=== PATIENT | female | born 1960 | race Caucasian/White ===

== ENCOUNTER 2017-07-11 12:55 | Emergency (ER) | payer MEDICARE, OTHER ==
[~2017-07-11] VITALS: Ht 152.4 cm; Wt 68.0 kg
[~2017-07-11 12:55] MED LIST: CLON-528 PO; FLUO20CA39 PO; NAPR500T4 PO
[2017-07-11] MEDS ORDERED: racepinephrine 11.25mg/0.5ml nebule IH ONE (13:00)
[2017-07-11] MEDS ORDERED: albuterol 2.5 MG/3 ML nebule NEB ONE (13:00)
[2017-07-11] MEDS ORDERED: normal saline 1000ML IV soln IVB ONE (13:00)
[2017-07-11] MEDS ORDERED: methylPREDNISolone sod succ 125mg/2ml vial IV ONE (13:00)
[2017-07-11 13:11] LABS: BASOPHILS # (AUTO) 0.1 X10'3 (0-0.2); BASOPHILS % (AUTO) 0.8 % (0-1); EOSINOPHILS # (AUTO) 0.2 X10'3 (0-0.9); EOSINOPHILS % (AUTO) 1.7 % (0-6); HEMATOCRIT 40.5 % (35.0-45.0); HEMOGLOBIN 14.2 g/dl (12.0-16.0); LYMPHOCYTES # (AUTO) 1.5 X10'3 (1.1-4.8); LYMPHOCYTES % (AUTO) 13.4 % (21-51); MEAN CORPUSCULAR HEMOGLOBIN 34.1 PG (27.0-31.0); MEAN CORPUSCULAR HGB CONC 35.2 % (33.0-36.5); MEAN CORPUSCULAR VOLUME 97.1 FL (78-98); MEAN PLATELET VOLUME 7.8 FL (7.4-10.4); MONOCYTES # (AUTO) 0.4 X10'3 (0-0.9); MONOCYTES % (AUTO) 3.4 % (2-12); NEUTROPHILS # (AUTO) 9.3 X10'3 (1.8-7.7); NEUTROPHILS % (AUTO) 80.7 % (42-75); PLATELET COUNT 213 X10'3 (140-440); RED BLOOD COUNT 4.17 X10'6 (4.20-5.60); RED CELL DISTRIBUTION WIDTH 13.7 % (11.5-14.5); WHITE BLOOD COUNT 11.5 X10'3 (4.5-11.0)
[2017-07-11 13:25] LABS: ALANINE AMINOTRANSFERASE 24 U/L (12-78); ALBUMIN 3.7 G/DL (3.4-5.0); ALBUMIN/GLOBULIN RATIO 1.2 (1.1-1.5); ALKALINE PHOSPHATASE 107 IU/L (46-116); ANION GAP 12 (8-16); ASPARTATE AMINO TRANSFERASE 22 U/L (10-37); BILIRUBIN,TOTAL 0.5 MG/DL (0.1-1.0); BLOOD UREA NITROGEN 17 MG/DL (7-18); BUN/CREATININE RATIO 14.2 (6.6-38.0); CALCIUM 8.5 MG/DL (8.5-10.1); CHLORIDE 107 MMOL/L (99-107); GLUCOSE 128 MG/DL (70-104); POTASSIUM 3.7 MMOL/L (3.5-5.1); SODIUM 142 MMOL/L (135-145); TOTAL CARBON DIOXIDE 23.3 MMOL/L (24-32); TOTAL PROTEIN 6.9 G/DL (6.4-8.2); eGFR 46 ML/MIN
[2017-07-11] MEDS ORDERED: DOXY100C43 PO (13:57)
[2017-07-11] MEDS ORDERED: EPIN0.3P8 IM (13:57)
[2017-07-11 15:06] VITALS: BP 130/83
[2017-07-12] MEDS ORDERED: METH4TAB81 PO (05:50)
[2017-07-12] MEDS ORDERED: DIPH25CA83 PO (05:50)
[2017-07-12] MEDS ORDERED: FAMO-128 PO (05:52)
== END 2017-07-11 15:50 | disposition home or self-care (01) ==
LOC: ER 12:55
DX: T78.2XXA Anaphylactic shock, unspecified, initial encounter (principal); L02.411 Cutaneous abscess of right axilla; J44.9 Chronic obstructive pulmonary disease, unspecified; E11.9 Type 2 diabetes mellitus without complications; Z88.2 Allergy status to sulfonamides; Z88.1 Allergy status to other antibiotic agents
CPT/HCPCS: 36415; 71045; 80053; 85025; 94640; 94760; 96361; 96374; 99285; J2930; J7030

== ENCOUNTER 2017-07-12 04:59 | Emergency (ER) | payer MEDICARE, OTHER ==
[~2017-07-12] VITALS: Ht 152.4 cm; Wt 68.2 kg
[~2017-07-12 04:59] MED LIST changes: +DOXY100C43 PO; +EPIN0.3P8 IM
[2017-07-12] MEDS ORDERED: methylPREDNISolone sod succ 125mg/2ml vial IV ONE (05:10)
[2017-07-12] MEDS ORDERED: diphenhydrAMINE 50 mg/ml inj IV ONE (05:10)
[2017-07-12] MEDS ORDERED: famotidine/PF 10 mg/ml inj IV ONE (05:10)
[2017-07-12] MEDS ORDERED: DIPH25CA83 PO (05:50)
[2017-07-12] MEDS ORDERED: METH4TAB81 PO (05:50)
[2017-07-12] MEDS ORDERED: FAMO-128 PO (05:52)
[2017-07-12 08:46] VITALS: BP 124/77
== END 2017-07-12 08:48 | disposition home or self-care (01) ==
LOC: ER 04:59
DX: L50.8 Other urticaria (principal); T78.40XA Allergy, unspecified, initial encounter; R22.0 Localized swelling, mass and lump, head; J44.9 Chronic obstructive pulmonary disease, unspecified; E11.9 Type 2 diabetes mellitus without complications; Z88.2 Allergy status to sulfonamides; Z88.1 Allergy status to other antibiotic agents; Z88.8 Allergy status to other drugs, medicaments and biological substances; Z60.2 Problems related to living alone; Z79.899 Other long term (current) drug therapy; Y92.9 Unspecified place or not applicable
CPT/HCPCS: 96374; 96375; 99284; J1200; J2930; J3490

== ENCOUNTER → 2018-01-28 | Emergency (ER) | payer MEDICARE, OTHER ==
[~2018-01-28] VITALS: Ht 160 cm; Wt 59.0 kg
[~2018-01-28] MED LIST changes: +DIPH25CA83 PO; -DOXY100C43 PO; +FAMO-128 PO; +METH4TAB81 PO; +NAPR-996 PO; -NAPR500T4 PO
[2018-01-28 06:36] VITALS: BP 132/61
== END | disposition home or self-care (01) ==
LOC: ER 05:19
DX: T78.1XXA Other adverse food reactions, not elsewhere classified, initial encounter (principal); R22.0 Localized swelling, mass and lump, head; J44.9 Chronic obstructive pulmonary disease, unspecified; E11.9 Type 2 diabetes mellitus without complications; Z88.2 Allergy status to sulfonamides; Z88.1 Allergy status to other antibiotic agents; Z79.899 Other long term (current) drug therapy; Z98.890 Other specified postprocedural states; Z60.2 Problems related to living alone; X58.XXXA Exposure to other specified factors, initial encounter
CPT/HCPCS: 99284

== ENCOUNTER 2019-08-27 00:11 | Emergency (ER) | payer MEDICARE ==
[~2019-08-27] VITALS: Ht 167.6 cm; Wt 77.0 kg
[2019-08-27] MEDS ORDERED: diphenhydrAMINE 50 mg/ml inj IM ONE (00:20)
[2019-08-27] MEDS ORDERED: haloperidol lactate 5mg/ml inj IM ONE (00:20)
[2019-08-27] MEDS ORDERED: LORazepam 2 mg/ml vial IM ONE (00:20)
[2019-08-27] MEDS ORDERED: ASPI-1265 PO (00:44)
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
--- NOTE | 2019-08-27 01:00 | NUR ---
Stimulus removed from pt's room and pt. offered emotional support. Pt. expressed that she has many stressors in her life. She is calming down at this time from med interventions. Pt. assisted to bedside commode to void for UA at this time. She is beginning to be cooperative. Quiet and restful environment provided to pt.
[2019-08-27 01:18] LABS: URINE HCG NEGATIVE (NEG)
[2019-08-27 01:28] LABS: BASOPHILS # (AUTO) 0.1 X10'3 (0-0.2); BASOPHILS % (AUTO) 0.9 % (0-1); EOSINOPHILS % (AUTO) 0.5 % (0-6); HEMATOCRIT 42.1 % (35.0-45.0); HEMOGLOBIN 14.6 g/dl (12.0-16.0); LYMPHOCYTES # (AUTO) 0.9 X10'3 (1.1-4.8); LYMPHOCYTES % (AUTO) 15.3 % (21-51); MEAN CORPUSCULAR HEMOGLOBIN 32.7 PG (27.0-31.0); MEAN CORPUSCULAR HGB CONC 34.6 g/dL (33.0-36.5); MEAN CORPUSCULAR VOLUME 94.4 FL (78-98); MEAN PLATELET VOLUME 8.5 FL (7.4-10.4); MONOCYTES # (AUTO) 0.3 X10'3 (0-0.9); MONOCYTES % (AUTO) 5.5 % (2-12); NEUTROPHILS # (AUTO) 4.4 X10'3 (1.8-7.7); NEUTROPHILS % (AUTO) 77.8 % (42-75); PLATELET COUNT 222 X10'3 (140-440); RED BLOOD COUNT 4.46 X10'6 (4.20-5.60); WHITE BLOOD COUNT 5.6 X10'3 (4.5-11.0)
[2019-08-27 01:32] LABS: URINE AMPHETAMINE SCREEN NEGATIVE (Neg); URINE BARBITUATE SCREEN NEGATIVE (Neg); URINE BENZODIAZEPINES SCREEN NEGATIVE (Neg); URINE CANNABINOID SCREEN NEGATIVE (Neg); URINE COCAINE SCREEN NEGATIVE (Neg); URINE METHADONE SCREEN NEGATIVE (Neg); URINE OPIATE SCREEN NEGATIVE (Neg); URINE PHENCYCLIDINE SCREEN NEGATIVE (Neg)
[2019-08-27 01:35] LABS: ALANINE AMINOTRANSFERASE 15 U/L (12-78); ALBUMIN 4.1 G/DL (3.4-5.0); ALKALINE PHOSPHATASE 90 IU/L (46-116); ANION GAP 17 (8-16); ASPARTATE AMINO TRANSFERASE 22 U/L (10-37); BILIRUBIN,TOTAL 0.3 MG/DL (0.1-1.0); BLOOD UREA NITROGEN 8 MG/DL (7-18); BUN/CREATININE RATIO 7.1 (6.6-38.0); CALCIUM 8.8 MG/DL (8.5-10.1); CHLORIDE 103 MMOL/L (99-107); CREATININE 1.13 MG/DL (0.40-0.90); ETHANOL 0.162 GM/DL (0.0-0.010); GLUCOSE 116 MG/DL (70-104); POTASSIUM 3.5 MMOL/L (3.5-5.1); SODIUM 141 MMOL/L (135-145); TOTAL CARBON DIOXIDE 21.1 MMOL/L (24-32); TOTAL PROTEIN 8.1 G/DL (6.4-8.2); eGFR 49 ML/MIN
--- NOTE | 2019-08-27 02:03 | NUR ---
Pt. in bed, on R side, sleeping. No s/s of distress or discomfort observed at this time.
--- NOTE | 2019-08-27 03:01 | NUR ---
Pt. continues to sleep. She repositions self. No s/s distress/discomfort observed at this time.
--- NOTE | 2019-08-27 03:08 | NUR ---
Pt. continues to sleep. No s/s of distress.
--- NOTE | 2019-08-27 04:11 | NUR ---
Pt. continues to sleep/rest with eyes closed. No s/s of distress/discomfort observed.
--- NOTE | 2019-08-27 05:38 | NUR ---
VS taken at this time and were stable. Pt. offered glass of water. No other needs at this time.
[2019-08-27] MEDS ORDERED: aspirin 81mg tab.chew PO SCH (08:00)
[2019-08-27] MEDS ORDERED: clonazePAM 0.5mg tablet PO SCH (08:00)
[2019-08-27] MEDS ORDERED: famotidine 20mg tablet PO SCH (08:00)
[2019-08-27] MEDS ORDERED: FLUoxetine 20mg capsule PO SCH (08:00)
[2019-08-27] MEDS ORDERED: naproxen 500mg tablet PO SCH (08:00)
--- NOTE | 2019-08-27 09:34 | NUR ---
in bed resting appears to be sleeping took morning meds breakfast given
[2019-08-27 10:35] LABS: CLARITY,URINE CLEAR (Clear); COLOR,URINE STRAW (Yellow); GLUCOSE, URINE NEGATIVE (Neg); KETONES,URINE NEGATIVE (Neg); LEUKOCYTE ESTERASE ,URINE TRACE (Neg); NITRITES, URINE NEGATIVE (Neg); OCCULT BLOOD,URINE NEGATIVE (Neg); PROTEIN,URINE NEGATIVE (Neg); UROBILINOGEN,URINE 0.2 E.U/dL (0.2-1.0)
[2019-08-27 10:40] LABS: UA COLLECTION TYPE VOIDED
[2019-08-27 10:43] LABS: BACTERIA,URINE 1+ /HPF (Neg); HYALINE CASTS 0-3 /LPF (NEGATIVE); MUCUS STRANDS NONE SEEN /LPF (Neg); RBC,URINE NONE SEEN /HPF (0-2); SQUAMOUS EPITHELIAL CELL,UR MODERATE /LPF (FEW); WBC,URINE 0-4 /HPF (0-4)
[2019-08-27 10:44] LABS: TRANSITIONAL EPI CELLS,URINE FEW /HPF
--- NOTE | 2019-08-27 11:10 | NUR ---
in bed resting breathing even and unlabored
[2019-08-27 16:36] VITALS: BP 146/85
== END 2019-08-27 16:42 | disposition home or self-care (01) ==
LOC: ER 00:12
DX: S00.83XA Contusion of other part of head, initial encounter (principal); R45.851 Suicidal ideations; N18.9 Chronic kidney disease, unspecified; F10.129 Alcohol abuse with intoxication, unspecified; J44.9 Chronic obstructive pulmonary disease, unspecified; E11.9 Type 2 diabetes mellitus without complications; F41.9 Anxiety disorder, unspecified; F32.9 Major depressive disorder, single episode, unspecified; Z98.890 Other specified postprocedural states; Z72.89 Other problems related to lifestyle; Z60.2 Problems related to living alone; Z88.2 Allergy status to sulfonamides; Z88.8 Allergy status to other drugs, medicaments and biological substances; Z79.82 Long term (current) use of aspirin; Z79.899 Other long term (current) drug therapy; X78.1XXA Intentional self-harm by knife, initial encounter; Y93.89 Activity, other specified; Y99.8 Other external cause status; Y92.89 Other specified places as the place of occurrence of the external cause
CPT/HCPCS: 36415; 80053; 80305; 80320; 81001; 81025; 85025; 87088; 96372; 99285; J1200; J1630; J2060

== ENCOUNTER 2020-01-06 22:13 | Emergency (ER) | payer MEDICARE ==
[~2020-01-06] VITALS: Ht 154.9 cm; Wt 90.9 kg
[~2020-01-06 22:13] MED LIST changes: +ASPI-1265 PO; -DIPH25CA83 PO; -EPIN0.3P8 IM; -METH4TAB81 PO
[2020-01-06] MEDS ORDERED: normal saline 1000ML IV soln IVB ONE (22:30)
[2020-01-06] MEDS ORDERED: dexamethasone sod phosphate 10mg/ml inj IV STA (22:30)
[2020-01-06] MEDS ORDERED: diphenhydrAMINE 50 mg/ml inj IV ONE (22:30)
[2020-01-06] MEDS ORDERED: dexamethasone sod phosphate 10mg/ml inj IM STA (22:39)
--- NOTE | 2020-01-06 22:39 | NUR ---
MEDICATION BENADRYL AND DECADRON CHANGED FROM IV TO IM, PHARMACY ADJUSTED
[2020-01-06] MEDS ORDERED: diphenhydrAMINE 50 mg/ml inj IM ONE (22:40)
--- NOTE | 2020-01-06 22:52 | NUR ---
PATIENT BAGEN SPITTING ON STAFF. TRIXIE NOTIFIED . REQUESTING PATIENT BE TAKEN TO [facility] Addendum: 01/06/20 at 2253 by CHARLOTTE ANGELI MARIE - PATIENT BAGEN SPITTING ON STAFF. TRIXIE NOTIFIED . REQUESTING PATIENT BE TAKEN TO SARIA[facility]
--- NOTE | 2020-01-06 23:00 | NUR ---
BAM- [phone] IS PT'S RIDE HOME
--- NOTE | 2020-01-06 23:04 | NUR ---
JOHANA MAE TO CENTRAL OFFICE SUPERVISOR PATIENT AND TAKE HER HOME.
--- NOTE | 2020-01-06 23:13 | NUR ---
[employer] REFUSED TO PICK PATIENT UP DUE TO SPITTING "BEING A HAZARD OF THE JOB". REANNA'TS FRIEND WAS WILLING TO PICK PATIENT UP.
[2020-01-06 23:33] VITALS: BP 136/86
== END 2020-01-06 23:37 | disposition home or self-care (01) ==
LOC: ER 22:14
DX: T78.1XXA Other adverse food reactions, not elsewhere classified, initial encounter (principal); T78.40XA Allergy, unspecified, initial encounter; J44.9 Chronic obstructive pulmonary disease, unspecified; E11.9 Type 2 diabetes mellitus without complications; F41.9 Anxiety disorder, unspecified; F17.210 Nicotine dependence, cigarettes, uncomplicated; F32.9 Major depressive disorder, single episode, unspecified; Z98.890 Other specified postprocedural states; Z72.89 Other problems related to lifestyle; Z88.2 Allergy status to sulfonamides; Z88.8 Allergy status to other drugs, medicaments and biological substances; Z79.82 Long term (current) use of aspirin; Z79.899 Other long term (current) drug therapy
CPT/HCPCS: 96372; 99284; J1100; J1200

== ENCOUNTER 2021-10-19 22:45 | Emergency (ER) | payer MEDICARE ==
[~2021-10-19] VITALS: Ht 149.9 cm; Wt 64.5 kg
[2021-10-19] MEDS ORDERED: LORazepam 2 mg/ml vial ONE (22:53)
[2021-10-19] MEDS ORDERED: haloperidol lactate 5mg/ml inj ONE ×2 (22:54→23:14)
[2021-10-19] MEDS ORDERED: diphenhydrAMINE 50 mg/ml inj ONE (22:54)
--- NOTE | 2021-10-19 23:07 | NUR ---
PT ALTERED, COMBATIVE, AND POOR HISTORIAN.
[2021-10-19] MEDS ORDERED: normal saline 1000ML IV soln IVB ONE (23:40)
[2021-10-20 00:10] LABS: APTT 25 SECONDS (22-32)
--- NOTE | 2021-10-20 00:45 | NUR ---
RESTRAINTS DISCONTINUED. PT SLEEPING COMFORTABLY WITH NO COMPLAINTS. GIVEN BLANKETS AND REPOSITIONED.
--- NOTE | 2021-10-20 01:15 | NUR ---
BP BLOOD PRESSURE AND MAP LOW. PT RESTING COMFORTABLY WITH NO SYMPTOMS. 2L OF NS GIVEN. NOTIFIED
[2021-10-20 01:30] LABS: CLARITY,URINE CLEAR (Clear); GLUCOSE, URINE NEGATIVE (Neg); KETONES,URINE NEGATIVE (Neg); LEUKOCYTE ESTERASE ,URINE NEGATIVE (Neg); NITRITES, URINE NEGATIVE (Neg); OCCULT BLOOD,URINE NEGATIVE (Neg); PROTEIN,URINE TRACE mg/dl (Neg); UROBILINOGEN,URINE 0.2 E.U/dL (0.2-1.0)
[2021-10-20 01:33] LABS: COLOR,URINE STRAW (Yellow); UA COLLECTION TYPE CLN CATCH MIDSTREAM
[2021-10-20 01:34] LABS: URINE AMPHETAMINE SCREEN NEGATIVE (Neg); URINE BARBITUATE SCREEN NEGATIVE (Neg); URINE BENZODIAZEPINES SCREEN NEGATIVE (Neg); URINE CANNABINOID SCREEN NEGATIVE (Neg); URINE COCAINE SCREEN NEGATIVE (Neg); URINE METHADONE SCREEN NEGATIVE (Neg); URINE OPIATE SCREEN NEGATIVE (Neg); URINE PHENCYCLIDINE SCREEN NEGATIVE (Neg)
[2021-10-20 01:37] LABS: BACTERIA,URINE NONE SEEN /HPF (Neg); HYALINE CASTS 0-3 /LPF (NEGATIVE); MUCUS STRANDS NONE SEEN /LPF (Neg); RBC,URINE 0-2 /HPF (0-2); SQUAMOUS EPITHELIAL CELL,UR FEW /LPF (FEW); WBC,URINE 0-4 /HPF (0-4)
[2021-10-20] MEDS ORDERED: normal saline 1000ML IV soln IVB ONE (01:40)
[2021-10-20 02:36] LABS: BASOPHILS # (AUTO) 0.1 X10'3 (0-0.2); BASOPHILS % (AUTO) 0.9 % (0-1); EOSINOPHILS # (AUTO) 0.1 X10'3 (0-0.9); EOSINOPHILS % (AUTO) 1.6 % (0-6); HEMATOCRIT 44.4 % (35.0-45.0); HEMOGLOBIN 15.5 g/dl (12.0-16.0); LYMPHOCYTES # (AUTO) 1.6 X10'3 (1.1-4.8); LYMPHOCYTES % (AUTO) 25.5 % (21-51); MEAN CORPUSCULAR HEMOGLOBIN 34.7 PG (27.0-31.0); MEAN CORPUSCULAR HGB CONC 34.8 g/dL (33.0-36.5); MEAN CORPUSCULAR VOLUME 99.7 FL (78-98); MEAN PLATELET VOLUME 8.5 FL (7.4-10.4); MONOCYTES # (AUTO) 0.3 X10'3 (0-0.9); NEUTROPHILS # (AUTO) 4.2 X10'3 (1.8-7.7); PLATELET COUNT 223 X10'3 (140-440); RED BLOOD COUNT 4.46 X10'6 (4.20-5.60); RED CELL DISTRIBUTION WIDTH 13.8 % (11.5-14.5); WHITE BLOOD COUNT 6.3 X10'3 (4.5-11.0)
[2021-10-20 03:01] LABS: ALBUMIN 3.2 G/DL (3.4-5.0); ALBUMIN/GLOBULIN RATIO 0.9 (1.1-1.5); ALKALINE PHOSPHATASE 91 IU/L (46-116); ANION GAP 13 (8-16); BILIRUBIN,TOTAL 0.3 MG/DL (0.1-1.0); BLOOD UREA NITROGEN 19 MG/DL (7-18); BUN/CREATININE RATIO 15.1 (6.6-38.0); CALCIUM 7.5 MG/DL (8.5-10.1); CHLORIDE 105 MMOL/L (99-107); CREATININE 1.26 MG/DL (0.40-0.90); ETHANOL 0.263 GM/DL (0.0-0.010); SODIUM 138 MMOL/L (135-145); TOTAL CARBON DIOXIDE 20.1 MMOL/L (24-32); TOTAL PROTEIN 6.6 G/DL (6.4-8.2); eGFR 43 ML/MIN
[2021-10-20 03:04] LABS: GLUCOSE 102 MG/DL (70-104); POTASSIUM 3.2 MMOL/L (3.5-5.1)
[2021-10-20 03:12] LABS: ALANINE AMINOTRANSFERASE 20 U/L (12-78); ASPARTATE AMINO TRANSFERASE 29 U/L (10-37)
--- NOTE | 2021-10-20 06:30 | NUR ---
PATIENT TO XRAY AT THIS TIME VIA GURNEY.
--- NOTE | 2021-10-20 06:37 | NUR ---
BACK FROM CT AT THIS TIME. Addendum: 10/20/21 at 0637 by CERAZO BACK FROM XRAY AT THIS TIME.
[2021-10-20 07:04] VITALS: BP 120/65
== END 2021-10-20 07:06 | disposition home or self-care (01) ==
LOC: ER 22:45
DX: S06.2X9A Diffuse traumatic brain injury with loss of consciousness of unspecified duration, initial encounter (principal); F10.129 Alcohol abuse with intoxication, unspecified; J44.9 Chronic obstructive pulmonary disease, unspecified; E11.9 Type 2 diabetes mellitus without complications; F41.9 Anxiety disorder, unspecified; F32.A Depression, unspecified; Z72.89 Other problems related to lifestyle; Z98.890 Other specified postprocedural states; Z60.2 Problems related to living alone; Z88.1 Allergy status to other antibiotic agents; Z88.8 Allergy status to other drugs, medicaments and biological substances; Z79.82 Long term (current) use of aspirin; Z79.899 Other long term (current) drug therapy; W19.XXXA Unspecified fall, initial encounter; Y93.89 Activity, other specified; Y92.89 Other specified places as the place of occurrence of the external cause; Y99.8 Other external cause status; Y90.0 Blood alcohol level of less than 20 mg/100 ml
CPT/HCPCS: 70450; 72125; 73502; 80053; 80305; 80320; 81001; 82140; 85025; 85610; 85730; 93005; 96360; 96361; 96372; 99285; J1200; J1630; J2060; J7030

== ENCOUNTER 2023-01-27 01:35 | Emergency (ER) | payer MEDICARE ==
[~2023-01-27] VITALS: Ht 149.9 cm; Wt 63.6 kg
[2023-01-27 02:23] LABS: BASOPHILS % (AUTO) 0.5 % (0-1); EOSINOPHILS # (AUTO) 0.2 X10'3 (0-0.9); EOSINOPHILS % (AUTO) 2.9 % (0-6); HEMATOCRIT 38.4 % (35.0-45.0); HEMOGLOBIN 13.3 g/dl (12.0-16.0); LYMPHOCYTES # (AUTO) 1.6 X10'3 (1.1-4.8); LYMPHOCYTES % (AUTO) 28.9 % (21-51); MEAN CORPUSCULAR HEMOGLOBIN 33.2 PG (27.0-31.0); MEAN CORPUSCULAR HGB CONC 34.5 g/dL (33.0-36.5); MEAN CORPUSCULAR VOLUME 96.3 FL (78-98); MEAN PLATELET VOLUME 7.7 FL (7.4-10.4); MONOCYTES # (AUTO) 0.4 X10'3 (0-0.9); MONOCYTES % (AUTO) 7.9 % (2-12); NEUTROPHILS # (AUTO) 3.4 X10'3 (1.8-7.7); NEUTROPHILS % (AUTO) 59.8 % (42-75); PLATELET COUNT 207 X10'3 (140-440); RED BLOOD COUNT 3.99 X10'6 (4.20-5.60); RED CELL DISTRIBUTION WIDTH 13.3 % (11.5-14.5); WHITE BLOOD COUNT 5.6 X10'3 (4.5-11.0)
[2023-01-27 02:30] LABS: BILIRUBIN,URINE NEGATIVE (Neg); CLARITY,URINE CLEAR (Clear); COLOR,URINE STRAW (Yellow); GLUCOSE, URINE NEGATIVE (Neg); KETONES,URINE NEGATIVE (Neg); LEUKOCYTE ESTERASE ,URINE NEGATIVE (Neg); NITRITES, URINE NEGATIVE (Neg); OCCULT BLOOD,URINE NEGATIVE (Neg); PH,URINE 5.5 (4.8-8.0); PROTEIN,URINE NEGATIVE (Neg); UROBILINOGEN,URINE 0.2 E.U/dL (0.2-1.0)
--- NOTE | 2023-01-27 02:30 | NUR ---
Patient arrived to bed 25 in ED overflow at this time via W/C from ED. Pleasant, calm and cooperative. Answered questions appropriately. Will continue to monitor.
[2023-01-27 02:45] LABS: ALBUMIN/GLOBULIN RATIO 0.9 (1.1-1.5); ALKALINE PHOSPHATASE 112 IU/L (46-116); ANION GAP 15 (8-16); BILIRUBIN,TOTAL 0.2 MG/DL (0.1-1.0); BLOOD UREA NITROGEN 20 MG/DL (7-18); BUN/CREATININE RATIO 14.9 (10.0-20.0); CALCIUM 9.5 MG/DL (8.5-10.1); CHLORIDE 101 MMOL/L (99-107); CREATININE 1.34 MG/DL (0.40-0.90); ETHANOL 154 MG/DL (<10); SODIUM 139 MMOL/L (135-145); THYROID STIMULATING HORMONE 1.49 ulU/ml (0.34-4.50); TOTAL CARBON DIOXIDE 22.6 MMOL/L (24-32); TOTAL PROTEIN 8.3 G/DL (6.4-8.2); eCRCL 29 ML/MIN; eGFR 40 ML/MIN
[2023-01-27] MEDS ORDERED: GABA600T13 PO (02:46)
[2023-01-27] MEDS ORDERED: Amitriptyline PO (02:46)
[2023-01-27] MEDS ORDERED: ACET-896 PO (02:46)
[2023-01-27] MEDS ORDERED: CETI-90 PO (02:47)
[2023-01-27 03:02] LABS: UA COLLECTION TYPE CLN CATCH MIDSTREAM
[2023-01-27 03:24] LABS: ALANINE AMINOTRANSFERASE 19 U/L (12-78); GLUCOSE 120 MG/DL (70-104)
[2023-01-27 03:25] LABS: URINE AMPHETAMINE SCREEN NEGATIVE (Neg); URINE BARBITUATE SCREEN NEGATIVE (Neg); URINE BENZODIAZEPINES SCREEN NEGATIVE (Neg); URINE CANNABINOID SCREEN NEGATIVE (Neg); URINE COCAINE SCREEN NEGATIVE (Neg); URINE METHADONE SCREEN NEGATIVE (Neg); URINE OPIATE SCREEN NEGATIVE (Neg); URINE PHENCYCLIDINE SCREEN NEGATIVE (Neg)
[2023-01-27 04:29] LABS: ASPARTATE AMINO TRANSFERASE 16 U/L (10-37)
[2023-01-27 04:31] LABS: POTASSIUM 3.5 MMOL/L (3.5-5.1)
--- NOTE | 2023-01-27 05:00 | NUR ---
Patient appears to be sleeping comfortably. No complaints noted at this time. Will continue to monitor.
[2023-01-27 05:46] VITALS: BP 123/78; PULSE 88; RESP 18; TEMP 98.3; O2SAT 96
--- NOTE | 2023-01-27 06:52 | NUR ---
PT LAYING IN BED, APPEARS TO BE SLEEPING. RESPIRATIONS UNLABORED. NO ACUTE DISTRESS NOTED.
--- NOTE | 2023-01-27 07:47 | NUR ---
PT TWO HOME MEDS GIVEN TO PHARMACY.
[2023-01-27] MEDS ORDERED: clonazePAM 0.5mg tablet PO SCH (08:00)
[2023-01-27] MEDS ORDERED: AMITRIPTYLINE PO SCH (08:00)
[2023-01-27] MEDS ORDERED: cetirizine 10mg tablet PO SCH (08:00)
[2023-01-27] MEDS ORDERED: FLUoxetine 20mg capsule PO SCH (08:00)
[2023-01-27] MEDS: acetaminophen 325mg tablet PO SCH ×2 (08:09→12:59)
[2023-01-27] MEDS: gabapentin 300mg capsule PO SCH ×2 (08:09→12:59)
--- NOTE | 2023-01-27 08:52 | NUR ---
PT APPEARS TO BE ASLEEP IN BED. RESPIRATIONS EQUAL AND UNLABORED. NO ACUTE DISTRESS NOTED AT THIS TIME.
--- NOTE | 2023-01-27 10:26 | NUR ---
PT TOOK MORNING MEDICATION WITH NO ISSUES AND LET THIS NURSE CHECK BLOOD SUGAR. PT ATE BREAKFAST AND USED RESTROOM. PT CURRENTLY APPEARS TO SLEEPING. RESPIRATIONS EQUAL AND UNLABORED. NO ACUTE DISTRESS NOTED AT THIS TIME.
--- NOTE | 2023-01-27 12:06 | NUR ---
Luiza bertrand in [facility] - 01/27/23 at 1525 by BRANDEN PT CURRENTLY UP AND TALKING TO HER MOTHER ON THE PHONE.
--- NOTE | 2023-01-27 12:07 | NUR ---
PT CURRENTLY UP AND TALKING TO SON ON THE PHONE.
--- NOTE | 2023-01-27 13:01 | NUR ---
PT TOOK MEDS AND WAS UP EATING LUNCH. PT WAS ASKING TO TALK TO FRIEND GHADA, WE WERE UNABLE TO FIND PHONE NUMBER. PT CURRENTLY LAYING IN BED. NO ACUTE DISTRESS NOTED AT THIS TIME.
--- NOTE | 2023-01-27 15:11 | NUR ---
Note elza in ED - 01/27/23 at 1528 by BRANDEN PTS MOTHER CAME TO VISIT. PT CURRENTLY RESTING ON BED AWAKE. NO ACUTE DISTRESS NOTED AT THIS TIME.
--- NOTE | 2023-01-27 15:28 | NUR ---
VLADIMIR CURRENTLY AT BEDSIDE WITH
== END 2023-01-27 17:04 | disposition home or self-care (01) ==
LOC: ER 01:37
DX: R45.851 Suicidal ideations (principal); Z20.822 Contact with and (suspected) exposure to COVID-19; F41.9 Anxiety disorder, unspecified; J44.9 Chronic obstructive pulmonary disease, unspecified; E11.9 Type 2 diabetes mellitus without complications; Z88.2 Allergy status to sulfonamides; Z79.899 Other long term (current) drug therapy; Z88.8 Allergy status to other drugs, medicaments and biological substances
CPT/HCPCS: 36415; 80053; 80305; 80320; 81003; 82948; 84443; 85025; 87811; 99285